=== PATIENT | male | born 1990 | race Caucasian/White ===

== ENCOUNTER 2021-03-03 08:59 | Emergency (ER) | payer BC, SELFPAY ==
[2021-03-03 09:14] VITALS: BP 148/78; PULSE 96; RESP 18; TEMP 37.6; O2SAT 100
--- NOTE | 2021-03-03 09:19 | ED.URI ---
HPI - URI/Sore Throat General Chief Complaint: Upper Respiratory Infection Stated Complaint: SORE THROAT/[place]S Time Seen by Provider: 03/03/21 09:19 Source: patient and RN notes reviewed Mode of arrival: ambulatory Limitations: no limitations History of Present Illness HPI Narrative: 30-year-old male presents with concern for sore throat, swollen tonsils, elevated temperature. He denies rhinorrhea, nasal congestion, headache, ear pain, cough, shortness of breath, body aches, chills, sweats, loss of sense of taste or smell. Reports symptoms started yesterday. Reports he took ibuprofen with some relief. He denies drooling, difficulty speaking, difficulty swallowing. MD elicited complaint: sore throat Related Data Home Medications Medication Instructions Recorded Confirmed No Home Medications 03/03/21 03/03/21 Allergies Allergy/AdvReac Type Severity Reaction Status Date / Time No Known Allergies Allergy Verified 03/03/21 09:13 Review of Systems Review of Systems: Narrative: CONSTITUTIONAL: Denies malaise, chills, sweats, or fever. EYES: Denies visual changes, redness, or discharge. ENT: Denies rhinorrhea, congestion, sinus pain, otalgia. Reports sore throat. CARDIOVASCULAR: Denies chest pain, palpitations, or edema. RESPIRATORY: Denies cough or dyspnea. GASTROINTESTINAL: Denies abdominal pain, nausea, vomiting, diarrhea SKIN: Denies rash or itching. MUSCULOSKELETAL: Denies myalgia. NEUROLOGIC: Denies headache. All systems reviewed & are unremarkable except as noted in HPI and below PMFSH Comments At time of signature, agree with nursing past medical, surgical, social and family history. There is no relevant family history pertinent to the presenting complaint Exam Narrative: Exam Narrative: GENERAL: Well-appearing, well-nourished, and in no acute distress. HEAD: Normocephalic EYES: PERRLA, conjunctivae clear ENT: Nares clear, turbinates erythematous, clear discharge. Mucous membranes moist. TM pearly moreau with dull light reflex bilaterally; no tragal tenderness. Oropharynx erythematous without lesions. Tonsils enlarged and with minimal exudate, no drooling, no hoarseness, no trismus, uvula midline. NECK: Supple. No lymphadenopathy CHEST: Clear to auscultation, breath sounds equal. No wheezing, rhonchi, rales, or stridor. No respiratory distress, speaks in full sentences. HEART: Regular rate and rhythm. No murmur heard. SKIN: Warm, dry, no rash. NEURO: Alert and oriented x3. PSYCH: Normal mood and affect Course Course Emergency Course: Patient is aware of diagnosis, understands and agrees to treatment plan. Anticipatory guidance given. Patient agrees to follow-up as directed and is aware of reasons to seek care at the emergency department. Portions of this record may have been created with voice recognition software Vital Signs Vital signs: Vital Signs Temperature 99.7 F H 03/03/21 09:14 Pulse Rate 96 03/03/21 09:14 Respiratory Rate 18 03/03/21 09:14 Blood Pressure 148/78 H 03/03/21 09:14 Pulse Oximetry 100 03/03/21 09:14 Temperature 99.7 F H 03/03/21 09:14 Pulse Rate 96 03/03/21 09:14 Respiratory Rate 18 03/03/21 09:14 Blood Pressure 148/78 H 03/03/21 09:14 Pulse Oximetry 100 03/03/21 09:14 Reviewed. MDM - URI/Sore Throat MDM Narrative Medical decision making narrative: Differential diagnosis considered: Craig virus, strep pharyngitis, allergic rhinitis, upper respiratory tract infection, sinusitis, rhinosinusitis, nasopharyngitis. viral pharyngitis, otitis media, otitis externa, pneumonia, bronchitis, viral cough syndrome, viral syndrome, and influenza. Exam findings show no acute concerns or changes; patient is non-toxic appearing and is in no distress. Patient is appropriate for outpatient treatment and follow-up. Lab Data Attestation: I reviewed the patient's lab results. Labs: Strep Screen Presumptive Negative
== END 2021-03-03 09:47 | disposition home or self-care (01) ==
PROVIDERS: Emergency Provider Nurse Practitioner
DX: J02.9 Acute pharyngitis, unspecified (principal); Z20.822 Contact with and (suspected) exposure to COVID-19
CPT/HCPCS: 87081; 87426; 87880; 99203; C9803; G0463

== ENCOUNTER 2021-04-03 16:24 | Emergency (ER) | payer BC, SELFPAY ==
[2021-04-03 16:36] VITALS: BP 142/87; PULSE 97; RESP 16; TEMP 37.2; O2SAT 100
--- NOTE | 2021-04-03 16:36 | ED.EAR ---
HPI - Ear Problem General Chief complaint: Ear Stated complaint: R EAR CLOGGED Source: patient and RN notes reviewed Limitations: no limitations History of Present Illness HPI Narrative: The patient, previously mostly healthy, presents with right ear discomfort. Patient states he has a prior history of cerumen impaction, he now has 1 to 2-day worsening of symptoms . He had mild decreased hearing, which worsened after attempts cleaning and manipulation. No discharge, fever, tinnitus, vertigo Related Data Home Medications Medication Instructions Recorded Confirmed No Home Medications 03/03/21 03/03/21 Allergies Allergy/AdvReac Type Severity Reaction Status Date / Time No Known Allergies Allergy Verified 03/03/21 09:13 Review of Systems Review of Systems: Narrative: The patient has been informed that they may have pre-hypertension or Hypertension based on a BP reading in the department. I recommend that the patient call the primary care provider listed on their discharge instructions or a physician of their choice this week to arrange follow up for further evaluation of possible pre-hypertension or Hypertension General/Constitutional: No weight loss,fever Eyes: N0: Redness,discharge Ears/Nose/Throat: No: Epistaxis,ear discharge Respiratory: Denies: Hemoptysis Gastrointestinal: No Vomiting, Bleeding-rectal Skin: No Lumps, eruption Neurologic: No Focal Weakness,Sz Hematologic: Denies: Petechiae/Purpura Psychiatric: No: Suicida ideationl All Other Systems: Reviewed and Negative PMFSH Comments At time of signature, agree with nursing past medical, surgical, social and family history. There is no relevant family history pertinent to the presenting complaint Exam Narrative: Exam Narrative: General Appearance: Well appearing, Well nourished, No distress EYE: PERRLA EOMI Ears: Right TM impacted with cerumen external ear normal, Auditory canal normal Nose: Normal nose, Nares clear Mouth/Throat: Normal appearing, Normal lips Neck: Supple, No adenopathy Respiratory: Airway patent, No respiratory distress Skin: Warm, Dry Neurological: A&O x3,, Normal affect Course Vital Signs Vital signs: Vital Signs Temperature 99 F 04/03/21 16:36 Pulse Rate 97 04/03/21 16:36 Respiratory Rate 16 04/03/21 16:36 Blood Pressure 142/87 H 04/03/21 16:36 Pulse Oximetry 100 04/03/21 16:36 Temperature 99 F 04/03/21 16:36 Pulse Rate 97 04/03/21 16:36 Respiratory Rate 16 04/03/21 16:36 Blood Pressure 142/87 H 04/03/21 16:36 Pulse Oximetry 100 04/03/21 16:36 Procedures Ear Wax Removal Right Ear: Ear Wax Removal Date: 04/03/21 Cerumenolytic Used: other (Peroxide) Results: Re-examined: cerumen removed completely TM Examination: TM(s) intact, normal appearance Ear Canal Exam: atraumatic Patient Tolerated Procedure: well Complications: no problems Technique: ear canal irrigated Medical Decision Making Vital Signs Vital Signs: Vital Signs Temperature 99 F 04/03/21 16:36 Pulse Rate 97 04/03/21 16:36 Respiratory Rate 16 04/03/21 16:36 Blood Pressure 142/87 H 04/03/21 16:36 Pulse Oximetry 100 04/03/21 16:36 Temperature 99 F 04/03/21 16:36 Pulse Rate 97 04/03/21 16:36 Respiratory Rate 16 04/03/21 16:36 Blood Pressure 142/87 H 04/03/21 16:36 Pulse Oximetry 100 04/03/21 16:36 Discharge Plan Discharge Clinical Impression: Impacted cerumen of right ear Patient Disposition: Home, Self-Care Condition: Improved Additional Instructions: See handout, also try OTC preparations like syringe and peroxide Prescriptions: No Action No Home Medications RF: 0 Follow-up/Referrals: Hans Gonzalez DO [Primary Care Provider] -
== END 2021-04-03 17:16 | disposition home or self-care (01) ==
PROVIDERS: Emergency Provider Emergency Medicine; PCP Internal Medicine
DX: H61.21 Impacted cerumen, right ear (principal)
CPT/HCPCS: 69209; 99212; G0463

== ENCOUNTER 2023-03-27 15:26 | Outpatient (CLI) | payer OTHER, SELFPAY ==
[2023-03-27 15:57] LABS: Kit Draw Collected
== END 2023-03-27 15:27 | disposition home or self-care (01) ==
LOC: ANHGOSHLAB 15:28
PROVIDERS: PCP Internal Medicine; Visit Provider Clinical Nurse Specialist
DX: E55.9 Vitamin D deficiency, unspecified (principal); F41.9 Anxiety disorder, unspecified; R00.2 Palpitations; Z13.220 Encounter for screening for lipoid disorders; Z13.228 Encounter for screening for other metabolic disorders
CPT/HCPCS: 36415